=== PATIENT | female | born 1995 | race African-American/Black ===

== ENCOUNTER 2018-01-15 06:01 | Emergency (ER) | payer OTHER ==
[~2018-01-15] VITALS: Ht 165.1 cm; Wt 54.4 kg
[2018-01-15] MEDS ORDERED: NKM (06:08)
[2018-01-15 06:10] VITALS: BP 112/74
[2018-01-15] MEDS ORDERED: Isovue-300 100ml vial INJ PRN (06:15)
[2018-01-15] MEDS ORDERED: Ketorolac 30mg Inj IV ONE (06:15)
--- NOTE | 2018-01-15 06:16 | Emergency Room Report ---
History of Present Illness General Chief Complaint: Abdominal Pain Source: Patient Present Illness HPI Is a 22-year-old female with no significant past medical history. She presents with chief complaint of pelvic pain. Onset was acute and occurred about 12 hours ago. She is currently on her menstrual flow. No fever chills but no nausea no vomiting. No discharge or dysuria frequency. Because of the pain she felt weakness in her leg. She does have some loose bowel movement/diarrhea me that she started. Pain is 7 out of 10. Nothing made it better. Palpation made it worse. She does have a history of ectopic requiring surgery. Allergies: Coded Allergies: No Known Allergies (Unverified , 01/15/18) Patient History Past Medical History: none, see triage record, old chart reviewed Past Surgical History: none Pertinent Family History: none Social History: Denies: smoking Last Menstrual Period: a week ago Now: No Immunizations: other Reviewed Nursing Documentation: PMH: Agreed; PSxH: Agreed Nursing Documentation-PMH Past Medical History: No Stated History Review of Systems Eye: Denies: eye pain, blurred vision ENT: Denies: ear pain, nose congestion, throat swelling Respiratory: Denies: cough, shortness of breath Cardiovascular: Denies: chest pain, palpitations Gastrointestinal: Reports: abdominal pain; Denies: diarrhea, nausea, vomiting Musculoskeletal: Denies: back pain, joint pain Skin: Denies: rash Neurological: Denies: headache, numbness Endocrine: Denies: increased thirst, increased urine Hematologic/Lymphatic: Denies: easy bruising All Other Systems: negative except mentioned in HPI Physical Exam Vital Signs Date Time Temp Pulse Resp B/P (MAP) Pulse Ox O2 Delivery O2 Flow Rate FiO2 01/15/18 06:03 97.4 71 18 112/74 99 Room Air 97.3 vitals normal Sp02 EP Interpretation: reviewed, normal General Appearance: well appearing, no apparent distress, alert Head: normocephalic, atraumatic Eyes: bilateral eye PERRL, bilateral eye EOMI ENT: hearing grossly normal, normal pharynx Neck: full range of motion, supple, no meningismus Respiratory: chest non-tender, lungs clear, normal breath sounds Cardiovascular #1: regular rate, rhythm, no murmur Gastrointestinal: normal bowel sounds, no mass, no organomegaly, no bruit, non- distended, tenderness - minimal tenderness, suprapubic Musculoskeletal: back normal, gait/station normal, normal range of motion Psychiatric: mood/affect normal Skin: warm/dry Medical Decision Making Diagnostic Impression: Primary Impression: Pelvic pain ER Course Patient with pelvic pain/abdominal pain. Labs, urine and CT scan ordered. I will sign this patient out to Dr. Butts for final disposition. Last Vital Signs Date Time Temp Pulse Resp B/P (MAP) Pulse Ox O2 Delivery O2 Flow Rate FiO2 01/15/18 06:10 97.3 18 112/74 99 Room Air 97.3 01/15/18 06:03 71 Status: improved Condition: Stable WOODROW SEQUEIRA M.D. Jan 15, 2018 06:16
[2018-01-15 06:37] LABS: APPEARANCE,URINE CLEAR; BILIRUBIN, URINE NEGATIVE (NEGATIVE); GLUCOSE, URINE (UA) NEGATIVE (NEGATIVE); KETONES,URINE NEGATIVE (NEGATIVE); LEUKOCYTE ESTERASE ,URINE 2+ (NEGATIVE); NITRITE,URINE NEGATIVE (NEGATIVE); PH,URINE 5 (4.5-8.0); PROTEIN,URINE 2+ (NEGATIVE); UROBILINOGEN,URINE NORMAL MG/DL (0.0-1.0)
[2018-01-15 06:43] LABS: EOSINOPHILS % (AUTO) 1.5 % (0.0-3.0); HEMATOCRIT 42.6 % (37.0-47.0); HEMOGLOBIN 13.9 G/DL (12.0-16.0); LYMPHOCYTES % (AUTO) 41.3 % (20.0-45.0); MEAN CORPUSCULAR VOLUME 89 FL (80-99); NEUTROPHILS % (AUTO) 50.2 % (45.0-75.0); PLATELET COUNT 281 K/UL (150-450); RED BLOOD COUNT 4.77 M/UL (4.20-5.40); WHITE BLOOD COUNT 6.9 K/UL (4.8-10.8)
[2018-01-15 06:53] LABS: ANION GAP 8 mmol/L (5-15); BLOOD UREA NITROGEN 15 mg/dL (7-18); CALCIUM 9.1 MG/DL (8.5-10.1); CARBON DIOXIDE 28 MMOL/L (21-32); CHLORIDE 105 MMOL/L (98-107); CREATININE 0.8 MG/DL (0.55-1.30); POTASSIUM 3.5 MMOL/L (3.5-5.1); SODIUM 141 MMOL/L (136-145)
--- NOTE | 2018-01-15 06:55 | Emergency Room Report ---
Physical Exam Please see the full note by Dr. Joy. Patient presents with suprapubic pain. This began earlier this morning. She was sitting when this started. The pain is lower in her abdomen and radiates down to her legs. Her last period was last week. She never had pain like this before. She felt nauseated and vomited one time. She feels this was related to anxiety. She denies dysuria or change in her bowels. There is no fever. Vital Signs Date Time Temp Pulse Resp B/P (MAP) Pulse Ox O2 Delivery O2 Flow Rate FiO2 01/15/18 06:03 97.4 71 18 112/74 99 Room Air 97.3 Sp02 EP Interpretation: reviewed, normal General Appearance: well appearing, no apparent distress, alert, GCS 15, non- toxic Head: normocephalic, atraumatic Eyes: bilateral eye normal inspection, bilateral eye PERRL ENT: moist mucus membranes Neck: supple Respiratory: chest non-tender, lungs clear, normal breath sounds Cardiovascular #1: regular rate, rhythm Cardiovascular #2: 2+ radial (L) Gastrointestinal: normal bowel sounds, no rebound, guarding, tenderness - suprapubic Genitourinary: no CVA tenderness Musculoskeletal: digits/nails normal, normal range of motion Neurologic: oriented x3, grossly normal Psychiatric: anxious Skin: normal inspection, normal color, warm/dry Medical Decision Making Diagnostic Impression: Primary Impression: Pelvic pain ER Course Patient initially evaluated by Dr. Joy. He ordered lab workup and also CT the abdomen/pelvis. Toradol was given. The patient states the pain is the same. test is negative. CBC normal. CMP normal. Lipase normal. Fentanyl and Zofran are ordered along with continued IV hydration. CT of the abdomen is pending. CT with no significant pathology in area of pain. Discussed results with patient. Pain free now (11:55). Based on pain pattern, ruptured ovarian cyst high on list of considerations. No surgical pathology or medical emergency at this time. Patient stable for outpatient observation and treatment. Laboratory Tests Test 01/15/18 06:21 White Blood Count 6.9 K/UL (4.8-10.8) Red Blood Count 4.77 M/UL (4.20-5.40) Hemoglobin 13.9 G/DL (12.0-16.0) Hematocrit 42.6 % (37.0-47.0) Mean Corpuscular Volume 89 FL (80-99) Mean Corpuscular Hemoglobin 29.1 PG (27.0-31.0) Mean Corpuscular Hemoglobin Concent 32.6 G/DL (32.0-36.0) Red Cell Distribution Width 12.0 % (11.6-14.8) Platelet Count 281 K/UL (150-450) Mean Platelet Volume 7.0 FL (6.5-10.1) Neutrophils (%) (Auto) 50.2 % (45.0-75.0) Lymphocytes (%) (Auto) 41.3 % (20.0-45.0) Monocytes (%) (Auto) 6.0 % (1.0-10.0) Eosinophils (%) (Auto) 1.5 % (0.0-3.0) Basophils (%) (Auto) 1.0 % (0.0-2.0) Urine Color Yellow Urine Appearance Clear Urine pH 5 (4.5-8.0) Urine Specific [place] 1.020 (1.005-1.035) Urine Protein 2+ (NEGATIVE) H Urine Glucose (UA) Negative (NEGATIVE) Urine Ketones Negative (NEGATIVE) Urine Occult Blood 1+ (NEGATIVE) H Urine Nitrite Negative (NEGATIVE) Urine Bilirubin Negative (NEGATIVE) Urine Urobilinogen Normal MG/DL (0.0-1.0) Urine Leukocyte Esterase 2+ (NEGATIVE) H Urine RBC 0-2 /HPF (0 - 2) Urine WBC 2-4 /HPF (0 - 2) Urine Squamous Epithelial Cells Few /LPF (NONE/OCC) Urine Bacteria Few /HPF (NONE) Urine Mucus Few /LPF (NONE/OCC) H Urine HCG, Qualitative Negative (NEGATIVE) Sodium Level 141 MMOL/L (136-145) Potassium Level 3.5 MMOL/L (3.5-5.1) Chloride Level 105 MMOL/L (98-107) Carbon Dioxide Level 28 MMOL/L (21-32) Anion Gap 8 mmol/L (5-15) Blood Urea Nitrogen 15 mg/dL (7-18) Creatinine 0.8 MG/DL (0.55-1.30) Estimate Glomerular Filtration Rate > 60 mL/min (>60) Glucose Level 95 MG/DL (74-106) Calcium Level 9.1 MG/DL (8.5-10.1) Total Bilirubin 0.6 MG/DL (0.2-1.0) Aspartate Amino Transferase (AST) 13 U/L (15-37) L Alanine Aminotransferase (ALT) 23 U/L (12-78) Alkaline Phosphatase 42 U/L (46-116) L Total Protein 7.6 G/DL (6.4-8.2) Albumin 4.2 G/DL (3.4-5.0) Globulin 3.4 g/dL Albumin/Globulin Ratio 1.2 (1.0-2.7) Lipase 136 U/L (73-393) CT/MRI/US Diagnostic Results CT/MRI/US Diagnostic Results : Imaging Test Ordered: abd/pelvis Impression Impression: Limited assessment of the GI tract, due to lack of enteric contrast administration Periportal edema. This is a nonspecific finding, can be seen in congestive heart failure, acute hepatitis, cholangitis acute pyelonephritis, among other possibilities. Correlate with clinical findings Equivocal slight heterogeneity to renal contrast opacification. Most likely just related to stage of contrast bolus, but if real could indicate bilateral pyelonephritis. Correlate with clinical and laboratory findings 11 mm low-attenuation lesion in segment 7 of the liver with possible peripheral nodular enhancement. Possibly but not definitively a benign hemangioma. Consider further evaluation with hemangioma protocol MRI Last Vital Signs Date Time Temp Pulse Resp B/P (MAP) Pulse Ox O2 Delivery O2 Flow Rate FiO2 01/15/18 12:10 98.2 76 16 117/80 100 Room Air 97.9 Status: improved Disposition: HOME, SELF-CARE Condition: Improved Referrals: NOT CHOSEN [facility]/,REFERRING (PCP) Michael Butts M.D. Jan 15, 2018 06:55
[2018-01-15 06:59] LABS: ALANINE AMINOTRANSFERASE 23 U/L (12-78); ALBUMIN 4.2 G/DL (3.4-5.0); ALBUMIN/GLOBULIN RATIO 1.2 (1.0-2.7); ALKALINE PHOSPHATASE 42 U/L (46-116); ASPARTATE AMINO TRANSFERASE 13 U/L (15-37); BILIRUBIN,TOTAL 0.6 MG/DL (0.2-1.0)
[2018-01-15] MEDS ORDERED: fentaNYL 100 mcg/2 mL IV ONE (07:00)
[2018-01-15 07:06] LABS: COLOR,URINE YELLOW
--- NOTE | 2018-01-15 08:56 | Diagnostic Imaging Report ---
Clinical Indication: Abdominal pain, suprapubic pain Technique: No oral contrast utilized, per emergency room physician request IV administration nonionic contrast. Venous phase spiral acquisition obtained through the abdomen and pelvis. Multiplanar reconstructions were generated. Total dose length product 485.26 mGycm. CTDIvol(s) 9.67 mGy. Dose reduction achieved using automated exposure control Comparison: none Findings: Lack of enteric contrast limits assessment of the GI tract Appendix is normal. No evidence of diverticulosis or diverticulitis. No small bowel distention. No free or loculated intraperitoneal gas or fluid is evident. Distal esophagus, stomach, duodenum are unremarkable. The liver demonstrates a 11 mm low-attenuation lesion in segment 7, questionably with peripheral nodular enhancement. There is evidence of periportal edema. The gallbladder is nondistended and no definite stones are demonstrated. There is equivocally some pericholecystic edema adjacent to the neck. No biliary ductal dilatation. The pancreas, spleen, adrenals are unremarkable. The kidneys demonstrate equivocally slightly heterogeneous attenuation, but no significant perinephric fat stranding. The uterus and ovaries are unremarkable. The bladder is unremarkable. The included lung bases demonstrate some focal pleural thickening posteriorly on the left. The bones are unremarkable Impression: Limited assessment of the GI tract, due to lack of enteric contrast administration Periportal edema. This is a nonspecific finding, can be seen in congestive heart failure, acute hepatitis, cholangitis acute pyelonephritis, among other possibilities. Correlate with clinical findings Equivocal slight heterogeneity to renal contrast opacification. Most likely just related to stage of contrast bolus, but if real could indicate bilateral pyelonephritis. Correlate with clinical and laboratory findings 11 mm low-attenuation lesion in segment 7 of the liver with possible peripheral nodular enhancement. Possibly but not definitively a benign hemangioma. Consider further evaluation with hemangioma protocol MRI The CT scanner at [facility] is accredited by the [employer] and the scans are performed using protocols designed to limit radiation exposure to as low as reasonably achievable to attain images of sufficient resolution adequate for diagnostic evaluation.
[2018-01-15 09:08] VITALS: BP 115/66
[2018-01-15 12:10] VITALS: BP 117/80
== END 2018-01-15 12:10 | disposition home or self-care (01) ==
LOC: EMR 06:22
DX: R10.2 Pelvic and perineal pain (principal)
CPT/HCPCS: 36415; 74177; 80053; 81003; 81025; 83690; 85025; 96361; 96374; 96375; 99284; J1885; J2405; J3010; Q9967

== ENCOUNTER 2018-03-31 08:40 | Emergency (ER) | payer OTHER ==
[~2018-03-31] VITALS: Ht 165.1 cm; Wt 56.7 kg
[~2018-03-31 08:40] MED LIST: NKM
[2018-03-31 09:20] VITALS: BP 113/74
[2018-03-31 09:50] LABS: APPEARANCE,URINE CLEAR; BILIRUBIN, URINE NEGATIVE (NEGATIVE); COLOR,URINE PALE YELLOW; GLUCOSE, URINE (UA) NEGATIVE (NEGATIVE); KETONES,URINE NEGATIVE (NEGATIVE); LEUKOCYTE ESTERASE ,URINE 1+ (NEGATIVE); NITRITE,URINE NEGATIVE (NEGATIVE); PH,URINE 8 (4.5-8.0); PROTEIN,URINE NEGATIVE (NEGATIVE); UROBILINOGEN,URINE NORMAL MG/DL (0.0-1.0)
[2018-03-31 09:53] LABS: BASOPHILS % (AUTO) 0.9 % (0.0-2.0); EOSINOPHILS % (AUTO) 1.3 % (0.0-3.0); HEMATOCRIT 41.2 % (37.0-47.0); HEMOGLOBIN 13.4 G/DL (12.0-16.0); LYMPHOCYTES % (AUTO) 35.1 % (20.0-45.0); MEAN CORPUSCULAR VOLUME 88 FL (80-99); MONOCYTES % (AUTO) 6.5 % (1.0-10.0); NEUTROPHILS % (AUTO) 56.3 % (45.0-75.0); PLATELET COUNT 275 K/UL (150-450); RED BLOOD COUNT 4.66 M/UL (4.20-5.40); RED CELL DISTRIBUTION WIDTH 11.6 % (11.6-14.8); WHITE BLOOD COUNT 4.8 K/UL (4.8-10.8)
[2018-03-31 09:55] LABS: ANION GAP 5 mmol/L (5-15); BLOOD UREA NITROGEN 11 mg/dL (7-18); CALCIUM 9.2 MG/DL (8.5-10.1); CARBON DIOXIDE 29 MMOL/L (21-32); CHLORIDE 105 MMOL/L (98-107); CREATININE 0.8 MG/DL (0.55-1.30); POTASSIUM 4.2 MMOL/L (3.5-5.1); SODIUM 138 MMOL/L (136-145)
[2018-03-31 10:00] LABS: ALANINE AMINOTRANSFERASE 20 U/L (12-78); ALBUMIN 3.9 G/DL (3.4-5.0); ALKALINE PHOSPHATASE 44 U/L (46-116); ASPARTATE AMINO TRANSFERASE 13 U/L (15-37); BILIRUBIN,TOTAL 0.4 MG/DL (0.2-1.0)
--- NOTE | 2018-03-31 12:38 | Emergency Room Report ---
History of Present Illness General Chief Complaint: Abdominal Pain Source: Patient Present Illness HPI Patient presents with bloating. Feels fullness in lower abdomen, more on L. Had chemical ab last month. Treated with antibiotics. Then had UTI and took Bactrim X 3 days. Still feels like UTI. Has yeast when takes antibiotics and was told to use Monostat. Use intermittently, and still feels like yeast, but no d/c. No fevers. No VD but has been nauseated. States no pole ID before given meds. Had abnormal period after. Had ectopic prior to this termination. No chest pain, edema, calf pain, dyspnea, rashes. Some anxiety about this. Allergies: Coded Allergies: No Known Allergies (Unverified , 01/15/18) Patient History Past Medical History: see triage record Social History: Reports: smoking Social History Narrative from home Now: No : 2 Para: 0 Reviewed Nursing Documentation: PMH: Agreed; PSxH: Agreed Nursing Documentation-PMH Past Medical History: No Stated History Review of Systems All Other Systems: negative except mentioned in HPI Physical Exam Vital Signs Date Time Temp Pulse Resp B/P (MAP) Pulse Ox O2 Delivery O2 Flow Rate FiO2 03/31/18 09:18 98.4 70 18 113/74 100 Room Air Sp02 EP Interpretation: reviewed, normal General Appearance: well appearing, no apparent distress, GCS 15 Head: normocephalic Eyes: bilateral eye normal inspection, bilateral eye PERRL ENT: moist mucus membranes Neck: supple Respiratory: lungs clear, normal breath sounds Cardiovascular #1: regular rate, rhythm Cardiovascular #2: 2+ radial (R) Gastrointestinal: normal inspection, normal bowel sounds, non tender, no mass, non-distended Genitourinary: no CVA tenderness, deferred - for ultrasound Musculoskeletal: back normal, gait/station normal, normal range of motion Neurologic: alert, oriented x3, grossly normal Psychiatric: mood/affect normal Skin: normal inspection, warm/dry Medical Decision Making Diagnostic Impression: Primary Impression: Bloating Additional Impression: ovarian cysts ER Course Patient presents with bloating after medical termination and antibiotics for UTI. DDX: , ovarian cysts, UTI, IBS amongst others. Evaluation with labs and ultrasound. Treatment with tylenol. Labs with normal WBC, H/H. Quant neg. CMP normal. UA clear. U/S with ovarian cysts (not sig large). Discussed finding with patient. Some improvement, though still feels bloated. 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 Patient stable for outpatient treatment and observation. Laboratory Tests Test 03/31/18 09:30 White Blood Count 4.8 K/UL (4.8-10.8) Red Blood Count 4.66 M/UL (4.20-5.40) Hemoglobin 13.4 G/DL (12.0-16.0) Hematocrit 41.2 % (37.0-47.0) Mean Corpuscular Volume 88 FL (80-99) Mean Corpuscular Hemoglobin 28.9 PG (27.0-31.0) Mean Corpuscular Hemoglobin Concent 32.6 G/DL (32.0-36.0) Red Cell Distribution Width 11.6 % (11.6-14.8) Platelet Count 275 K/UL (150-450) Mean Platelet Volume 7.1 FL (6.5-10.1) Neutrophils (%) (Auto) 56.3 % (45.0-75.0) Lymphocytes (%) (Auto) 35.1 % (20.0-45.0) Monocytes (%) (Auto) 6.5 % (1.0-10.0) Eosinophils (%) (Auto) 1.3 % (0.0-3.0) Basophils (%) (Auto) 0.9 % (0.0-2.0) Urine Color Pale yellow Urine Appearance Clear Urine pH 8 (4.5-8.0) Urine Specific [place] 1.010 (1.005-1.035) Urine Protein Negative (NEGATIVE) Urine Glucose (UA) Negative (NEGATIVE) Urine Ketones Negative (NEGATIVE) Urine Blood Negative (NEGATIVE) Urine Nitrite Negative (NEGATIVE) Urine Bilirubin Negative (NEGATIVE) Urine Urobilinogen Normal MG/DL (0.0-1.0) Urine Leukocyte Esterase 1+ (NEGATIVE) H Urine RBC 0-2 /HPF (0 - 2) Urine WBC 2-4 /HPF (0 - 2) Urine Squamous Epithelial Cells Few /LPF (NONE/OCC) Urine Bacteria Few /HPF (NONE) Sodium Level 138 MMOL/L (136-145) Potassium Level 4.2 MMOL/L (3.5-5.1) Chloride Level 105 MMOL/L (98-107) Carbon Dioxide Level 29 MMOL/L (21-32) Anion Gap 5 mmol/L (5-15) Blood Urea Nitrogen 11 mg/dL (7-18) Creatinine 0.8 MG/DL (0.55-1.30) Estimate Glomerular Filtration Rate > 60 mL/min (>60) Glucose Level 85 MG/DL (74-106) Calcium Level 9.2 MG/DL (8.5-10.1) Total Bilirubin 0.4 MG/DL (0.2-1.0) Aspartate Amino Transferase (AST) 13 U/L (15-37) L Alanine Aminotransferase (ALT) 20 U/L (12-78) Alkaline Phosphatase 44 U/L (46-116) L Total Protein 8.0 G/DL (6.4-8.2) Albumin 3.9 G/DL (3.4-5.0) Globulin 4.1 g/dL Albumin/Globulin Ratio 1.0 (1.0-2.7) Lipase 136 U/L (73-393) Human Chorionic Gonadotropin, Quant < 1 mIU/mL (1-6) L CT/MRI/US Diagnostic Results CT/MRI/US Diagnostic Results : Imaging Test Ordered: pelvic u/s Impression ovarian cysts, min fluid cul de sac Last Vital Signs Date Time Temp Pulse Resp B/P (MAP) Pulse Ox O2 Delivery O2 Flow Rate FiO2 03/31/18 13:06 98.4 70 18 113/74 100 Room Air Status: improved Disposition: HOME, SELF-CARE Condition: Improved Scripts Fluconazole (FLUCONAZOLE) 100 Mg Tablet 100 MG ORAL DAILY, #1 TAB 1 Refill Prov: Michael Butts MD 03/31/18 Ibuprofen* (MOTRIN*) 600 Mg Tablet 600 MG ORAL Q6H PRN for For Pain, #20 TAB Prov: Michael Butts MD 03/31/18 Referrals: [facility],REFERRING (PCP) Michael Butts MD Mar 31, 2018 12:38
[2018-03-31] MEDS ORDERED: FLUCONAZOLE100 MG ORAL (12:40)
[2018-03-31] MEDS ORDERED: IBUPROFEN600 MG ORAL (12:40)
[2018-03-31 13:06] VITALS: BP 113/74
--- NOTE | 2018-04-01 10:09 | Diagnostic Imaging Report ---
Indication:Lower abdominal and pelvic pain Technique: Grayscale and duplex Doppler imaging of the pelvis performed utilizing a transabdominal and endovaginal scan. Comparison: None Findings: The size, contour, and configuration of the uterus is within normal limits. The endometrium is uniformly echogenic and normal in thickness. Endometrium is 11 mm. Uterus measures 8.8 x 4.7 x 3.2 cm. The ovaries appear normal bilaterally with good dopplerable blood flow. There is no significant free fluid identified. Right ovary is 2.3 x 3.7 x 1.6 cm. Left ovary is 2.9 x 3 x 2.1 cm. IMPRESSION: Negative pelvic ultrasound. No acute findings.
== END 2018-03-31 13:08 | disposition home or self-care (01) ==
LOC: EMR 10:45
DX: N83.209 Unspecified ovarian cyst, unspecified side (principal); R14.0 Abdominal distension (gaseous); Z72.0 Tobacco use
CPT/HCPCS: 36415; 76830; 76856; 80053; 81003; 83690; 84702; 85025; 86900; 86901; 99284